=== PATIENT | male | born 1970 | race Caucasian/White ===

== ENCOUNTER 2017-10-23 09:59 | Emergency (ER) | payer BC ==
[~2017-10-23] VITALS: Ht 177.8 cm; Wt 102.1 kg
[~2017-10-23 09:59] MED LIST: GABA-112 PO; MELO7.5T5 PO; SIMV20TA2 PO
[2017-10-23 10:03] VITALS: TEMP 36.6; Ht 177.8 cm; Wt 102.1 kg
[2017-10-23] MEDS ORDERED: HYDROmorphone INJ 2 MG/ML SYR/VIAL IV STA (10:19)
[2017-10-23] MEDS ORDERED: ACETAMINOPHEN 500 MG TAB PO STA (10:19)
[2017-10-23] MEDS ORDERED: ONDANSETRON INJ 2 MG/ML 2 ML VIAL IV STA (10:19)
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
[2017-10-23] MEDS ORDERED: FAMOTIDINE 20 MG TAB PO ONE (10:30)
[2017-10-23] MEDS ORDERED: DEXAMETHASONE **PF** INJ 10 MG/ML VIAL IV ONE (10:30)
--- NOTE | 2017-10-23 11:41 | DIAGNOSTIC IMAGING REPORT ---
LUMBAR SPINE 5 VIEWS CLINICAL HISTORY: Low back pain. FINDINGS: 5 views of the lumbar spine are obtained. No prior studies are available for comparison at the time of dictation. The skeletal structures are well mineralized. There is no radiographic evidence of fracture or malalignment. Vertebral body height and alignment are maintained. The transverse and spinous processes are intact. There is no evidence of spondylolysis. Anterior osteophytes are seen throughout. The intervertebral disc spaces are well-maintained. The visualized bony pelvis appears intact. There is a nonobstructed abdominal bowel gas pattern. IMPRESSION: No significant radiographic abnormality is seen involving the lumbosacral spine. Electronically signed by: Toby Vaughn M.D. 10/23/2017 11:39 AM Dictated Date/Time: 10/23/2017 11:39 AM
[2017-10-23] MEDS ORDERED: TRAM-453 PO (11:58)
[2017-10-23] MEDS ORDERED: METH4PAK PO (11:58)
[2017-10-23 12:26] VITALS: BP 147/89; PULSE 74; O2SAT 93
[2017-10-28] MEDS ORDERED: ACET-1256 PO (08:13)
== END 2017-10-23 12:27 | disposition home or self-care (01) ==
LOC: C.EDB 10:00 → C.EDA 12:27
DX: M54.5 Low back pain (principal); G89.29 Other chronic pain; E78.5 Hyperlipidemia, unspecified; F17.200 Nicotine dependence, unspecified, uncomplicated; Z79.1 Long term (current) use of non-steroidal anti-inflammatories (NSAID)

== ENCOUNTER → 2018-01-17 | Outpatient (CLI) | payer BC ==
[~2018-01-17] MED LIST changes: +ACET-1256 PO
--- NOTE | 2018-01-17 11:59 | DIAGNOSTIC IMAGING REPORT ---
R HIP UNILATERAL 2 VIEWS CLINICAL HISTORY: HIP PAIN COMPARISON: None. DISCUSSION: No acute fractures are visualized. There are no erosive or destructive changes. There is a small greater trochanteric spur. IMPRESSION: 1. No fractures or dislocations identified 2. No evidence of significant joint space narrowing 3. Greater trochanteric spur Electronically signed by: Jorge Strauss M.D. 01/17/2018 11:58 AM Dictated Date/Time: 01/17/2018 11:57 AM
--- NOTE | 2018-01-17 12:03 | DIAGNOSTIC IMAGING REPORT ---
LEG LENGTH STUDY (WHOLE LEG) CLINICAL HISTORY: Right hip pain. Leg length discrepancy. COMPARISON STUDY: No previous studies for comparison. FINDINGS: When measuring from the superior aspect of the femoral heads to the tibial plafonds, the right lower extremity measures 90.8 cm and the left measures 91.2 cm. No suspicious osseous lesion is identified within the lower extremity. No fracture is noted. The joint spaces are preserved within the medial and lateral compartments. IMPRESSION: Right leg length of 90.8 cm and left leg length of 91.2 cm. Electronically signed by: Tomy Manriquez M.D. 01/17/2018 12:02 PM Dictated Date/Time: 01/17/2018 11:59 AM
== END | disposition home or self-care (01) ==
LOC: C.RADBC 11:35
PROVIDERS: ATTEND Physician Assistant
DX: M21.70 Unequal limb length (acquired), unspecified site (principal); M25.551 Pain in right hip

== ENCOUNTER → 2018-03-05 | Outpatient (CLI) | payer BC ==
[2018-03-05 16:54] LABS: BASO % 0.1 %; BASO ABS # 0.01 K/uL (0-0.2); EOS % 2.6 %; EOS ABS # 0.21 K/uL (0-0.5); HEMATOCRIT 45.5 % (42-52); HEMOGLOBIN 16.2 g/dL (14.0-18.0); IG# 0.02 K/uL (0.00-0.02); LYMPH % 35.1 %; LYMPH ABS # 2.78 K/uL (1.2-3.4); MEAN CORPUSCULAR HEMOGLOBIN 31.3 pg (25-34); MEAN CORPUSCULAR HGB CONC 35.6 g/dl (32-36); MEAN PLATELET VOLUME 10.8 fL (7.4-10.4); MONO % 7.2 %; MONO ABS # 0.57 K/uL (0.11-0.59); NEUT % 54.7 %; NEUT ABS # 4.34 K/uL (1.4-6.5); PLATELET COUNT 178 K/uL (130-400); RED CELL DISTRIBUTION WIDTH CV 12.6 % (11.5-14.5); RED CELL DISTRIBUTION WIDTH SD 40.4 fL (36.4-46.3); WHITE BLOOD COUNT 7.93 K/uL (4.8-10.8)
[2018-03-05 17:09] LABS: BLOOD UREA NITROGEN 14 mg/dl (7-18); CALCIUM 8.7 mg/dl (8.5-10.1); CARBON DIOXIDE 27 mmol/L (21-32); CREATININE 0.87 mg/dl (0.60-1.40); GLUCOSE 107 mg/dl (70-99); POTASSIUM 3.8 mmol/L (3.5-5.1); SODIUM 139 mmol/L (136-145)
== END | disposition home or self-care (01) ==
LOC: C.LABBC 14:45
PROVIDERS: ATTEND Orthopaedic Surgery Orthopaedic Surgery of the Spine
DX: R20.0 Anesthesia of skin (principal); M54.9 Dorsalgia, unspecified